=== PATIENT | male | born 1940 | race Caucasian/White ===

== ENCOUNTER 2017-07-29 05:33 | Inpatient (IN) | payer MEDICARE, BC ==
[2017-07-29] MEDS: CEFAZOLIN 2 GM/50 ML (PMX) 50 ML IVPB (06:30)
[2017-07-29] MEDS ORDERED: BUPIVACAINE 0.5% (SDV) 30 ML, morphine SULFATE (PF) 8 MG, EPINEPHrine 0.3 MG, KETOROLAC... IRR (06:30)
[2017-07-29] MEDS: TRANEXAMIC ACID 1,000 MG in DEXTROSE 5% 100 ML IVPB (06:30)
[2017-07-29] MEDS: DEXAMETHASONE 1 MG TAB PO (06:34)
[2017-07-29] MEDS: GABAPENTIN 300 MG CAP PO ×2 (06:34→20:35)
[2017-07-29] MEDS: traMADol 50 MG TAB PO (06:35)
[2017-07-29] MEDS ORDERED: MIDAZOLAM 1 MG/ML 2 ML INJ (06:53)
[2017-07-29] MEDS ORDERED: ROPIVACAINE 0.5 % 30 ML VIAL (06:53)
[2017-07-29] MEDS ORDERED: LIDOCAINE 2% (SDV) 5 ML INJ (07:42)
[2017-07-29] MEDS ORDERED: SUCCINYLCHOLINE CHLORIDE 100 MG/5 ML SYG IV (07:42)
[2017-07-29] MEDS ORDERED: PROPOFOL 20 ML (07:42)
[2017-07-29] MEDS ORDERED: SUGAMMADEX SODIUM 200 MG/2 ML VIAL IV (07:42)
[2017-07-29] MEDS ORDERED: CEFAZOLIN 1 GM INJ (07:42)
[2017-07-29] MEDS ORDERED: ROCURONIUM 50 MG INJ (07:42)
[2017-07-29] MEDS: THROMBIN 5000 UNIT VIAL (07:48)
[2017-07-29] MEDS: POLYMYXIN/BACITRACIN 1L IRRIG (07:48)
[2017-07-29] MEDS: CA CHLORIDE 10% 10 ML SYRINGE (07:48)
[2017-07-29] MEDS: BUPIVACAINE 0.5%/EPI (SDV) 30 ML INJ (07:48)
[2017-07-29] MEDS ORDERED: METOCLOPRAMIDE 10 MG INJ IV (08:00)
[2017-07-29] MEDS ORDERED: HYDROmorphONE (0.2 MG/ML) 10ML SYG IV ×2 (08:00)
[2017-07-29] MEDS ORDERED: ONDANSETRON 4 MG INJ IV ×2 (08:00→09:30)
[2017-07-29] MEDS ORDERED: FENTAnyl 50 MCG/ML VIAL IV ×2 (08:00)
[2017-07-29] MEDS ORDERED: MEPERIDINE 25 MG INJ IV (08:00)
[2017-07-29] MEDS ORDERED: DIPHENHYDRAMINE 50 MG INJ IV ×2 (08:00→09:30)
[2017-07-29] MEDS ORDERED: MAGNESIUM HYDROXIDE 30ML CUP PO (09:30)
[2017-07-29] MEDS ORDERED: OXYCODONE/ACETAMINOPHEN (5/325) TAB PO (09:30)
[2017-07-29] MEDS ORDERED: ACETAMINOPHEN 500 MG TAB PO (09:30)
[2017-07-29] MEDS: TRANEXAMIC ACID 1,000 MG in DEXTROSE 5% 100 ML IV (10:17)
[2017-07-29] MEDS: CEFAZOLIN 1 GM/50 ML (PMX) 50 ML IVPB ×2 (11:42→17:12)
[2017-07-29] MEDS: DEXAMETHASONE 2 MG TAB PO ×3 (11:42→23:44)
[2017-07-29] MEDS: SENNA/DOCUSATE NA (8.6MG/50MG) TAB PO (20:35)
[2017-07-29] MEDS: ATORVASTATIN 40 MG TAB PO (20:35)
[2017-07-29] MEDS: OXYCODONE/ACETAMINOPHEN (5/325) TAB PO (20:41)
[2017-07-30] MEDS: CEFAZOLIN 1 GM/50 ML (PMX) 50 ML IVPB (01:16)
[2017-07-30] MEDS: morphine 2 MG INJ IV (01:22)
[2017-07-30] MEDS: ZOLPIDEM 5 MG TAB PO (02:17)
[2017-07-30] MEDS: DEXAMETHASONE 2 MG TAB PO (05:43)
[2017-07-30] MEDS: morphine 4 MG/ML VIAL IV (05:48)
[2017-07-30] MEDS: ASPIRIN 81 MG TAB PO (08:14)
[2017-07-30] MEDS: SENNA/DOCUSATE NA (8.6MG/50MG) TAB PO (08:14)
[2017-07-30] MEDS: KETOROLAC 15 MG INJ IV (10:54)
== END 2017-07-30 11:45 | disposition home or self-care (01) | DRG 483 ==
LOC: REC 05:33 → MS1 10:49
PROC: 0RRJ0JZ Replacement of Right Shoulder Joint with Synthetic Substitute, Open Approach (ICD-10-PCS; principal; 2017-07-29 07:00)
DX: M19.011 Primary osteoarthritis, right shoulder (principal); I35.0 Nonrheumatic aortic (valve) stenosis; I45.10 Unspecified right bundle-branch block; I65.23 Occlusion and stenosis of bilateral carotid arteries; E78.5 Hyperlipidemia, unspecified; Z96.641 Presence of right artificial hip joint; Z98.42 Cataract extraction status, left eye; Z98.41 Cataract extraction status, right eye; Z87.891 Personal history of nicotine dependence
CPT/HCPCS: 73030-RT; 86999; 88304; 88311; 97165; 97535